=== PATIENT | female | born 1950 | race Caucasian/White ===

== ENCOUNTER → 2017-05-15 | Day surgery (SDC) | payer OTHER ==
[~2017-05-15] VITALS: Ht 167.6 cm; Wt 62.0 kg
[~2017-05-15] MED LIST: *HYDROmorphone PF 1 MG VIAL PERIprocedural Use ONLY ONE; APREPITANT 40 MG CAP ONE; APREPITANT 40 MG CAP PO ONE; CHLORHEXIDINE GLUCONATE 2 % 1 PACK (2 CLOTHS) TOPICAL PRN; CHOL5000 PO; DO NOT ADM ANY ANTICOAGULANT DRUGS PRN; DULO-39 PO; GLYCOPYRROLATE 1 MG/5 ML SYRINGE IV PUSH ONE; LACTATED RINGER'S 1000 ML IV PRN; LEVO100T5 PO; LIDOCAINE HCL 1% PF 5 ML SYRINGE OTHER ONE; METOPROLOL TARTRATE 25 MG TAB PO PRN; MIDAZOLAM HCL 2 MG/2 ML VIAL IV ONE; MORP1TAB25 PO; ONDANSETRON HCL 4 MG/2 ML VIAL IV ONE; PHENYLEPH/NS 1000 MCG/10 ML SYR IV ONE; POVIDONE IODINE 5% (ANTISEPSIS KIT) 4 APPLICATIONS EACH NARE PRN; PROPOFOL 200 MG/20 ML AMP IV ONE; SODIUM CHLORID 0.9% 500 ML IV PRN; TOPI100 PO; TOPI200T7 PO; ceFAZolin 1,000 MG/NS 100 ML IV SCH; ePHEDrine/NS 25 MG/5 ML SYR IV ONE; oxyCODONE/ACETAMINOPHEN 5 MG/325 MG TAB PO PRN
--- NOTE | 2017-05-15 08:00 | PD.OP ---
Operative Report Date of Surgery: May 15, 2017 Preoperative Diagnosis: (1) Postmenopausal bleeding (2) Bleeding after intercourse (3) Pelvic and perineal pain (4) Perimenopausal atrophic vaginitis Postoperative Diagnosis: (1) Postmenopausal bleeding (2) Bleeding after intercourse (3) Pelvic and perineal pain (4) Perimenopausal atrophic vaginitis Procedure: 1. hysteroscopy 2. D&C Anesthesia: NUNU Surgeon: Dahiana Brown [employer] Installer(s): OR staff Operation and Findings: IVF: 750 ml UO: 100 ml EBL: <10 ml Findings: abnormal-appearing endometrial lining Specimens: endometrial curettings Complications: none Condition: stable Disposition: PACU Descriptions of the procedure: I discussed the risks, benefits and alternatives of the procedure with the patient. Informed consent was obtained after questions were answered. She was taken to the operating room with her IV running. She was placed in the supine position and was given general anesthesia without difficulties or complications. She was then placed in the dorsal lithotomy position and was prepped and draped in the usual sterile fashion. A bivalve speculum was placed inside the patient's vagina. The anterior aspect of the cervix was grasped with a single tooth tenaculum for manipulation. The cervix was carefully dilated. A hysteroscope was introduced inside the patient' s uterus. The uterine cavity was noted to have small polyps. Also, some abnormal -looking vascular polyps vs. fat (?) were noted. The question of an abnormal uterine cavity vs. endometrial perforation was raised. The decision was made not to proceed with ablation. Next, a gentle D&C was carefully done in the lower uterine segment. The curettings were sent to pathology. All the instruments were removed from the uterine cavity. The cervix was noted to be hemostatic after applying pressure. All the instruments were removed from the patient's vagina. The patient tolerated the procedure well. She was successfully awaken from general anesthesia and was transferred to PACU in stable condition. The patient was observed for longer time in the PACU. She also did well in Same Day Surgery. Labs were obtained. (The patient didn't get her pre-op labs done so there was no comparison but she was stable and remained asymptomatic.) Note: I discussed the surgical findings and surgical procedures with the patient 's . His questions were answered. He verbalized understanding and agreement to the procedures done. Dahiana Brown MD May 15, 2017 08:00
[2017-05-15 15:46] LABS: AUTOMATED NEUTROPHIL # 2.5 TH/MM3 (1.8-7.7); BASOPHIL # 0.1 TH/MM3 (0-0.2); BASOPHIL % 1.4 % (0.0-2.0); EOSINOPHIL # 0.1 TH/MM3 (0-0.4); EOSINOPHIL % 2.8 % (0.0-4.0); HEMATOCRIT 30.5 % (35.0-46.0); HEMO FLAGS DIFF FINAL; LYMPH % 32.6 % (9.0-44.0); LYMPHOCYTE # 1.5 TH/MM3 (1.0-4.8); MEAN CELL VOLUME 89.6 FL (80.0-100.0); MEAN CORPUSCULAR HEMOGLOBIN 31.6 PG (27.0-34.0); MEAN CORPUSCULAR HGB CONC 35.3 % (32.0-36.0); NEUT % 56.2 % (16.0-70.0); PLATELET COUNT 239 TH/MM3 (150-450); RED CELL DISTRIBUTION WIDTH 14.4 % (11.6-17.2); WHITE BLOOD COUNT 4.5 TH/MM3 (4.0-11.0)
[2017-05-15 16:15] LABS: BICARBONATE 29.5 MEQ/L (21.0-32.0); POTASSIUM 3.9 MEQ/L (3.5-5.1)
[2017-05-15 17:31] VITALS: BP 117/62; PULSE 82; RESP 16; TEMP 97.5; O2SAT 97
== END | disposition home or self-care (01) ==
LOC: HSDC 09:09
PROVIDERS: ATTEND Obstetrics & Gynecology
DX: N95.0 Postmenopausal bleeding (principal); N93.0 Postcoital and contact bleeding; N95.2 Postmenopausal atrophic vaginitis
CPT/HCPCS: 00952; 58558; 80048; 85025; 88305; J0690; J1170; J7120; J8501; J2250; J2370; J2405; J3010